=== PATIENT | female | born 1960 | race Caucasian/White ===

== ENCOUNTER → 2016-10-28 | Outpatient (CLI) | payer OTHER, MEDICAID ==
[2016-10-28 12:05] LABS: C-REACTIVE PROTEIN 12.5 mg/L (0-3.0); URIC ACID 2.6 mg/dL (2.6-6.0)
[2016-10-28 12:45] LABS: RHEUMATOID FACTOR NEGATIVE (NEGATIVE)
== END | disposition home or self-care (01) | DRG 554 ==
LOC: LAB 11:28
PROVIDERS: ATTEND Nurse Practitioner Family
DX: M06.4 Inflammatory polyarthropathy (principal); E87.6 Hypokalemia; M54.5 Low back pain; M25.571 Pain in right ankle and joints of right foot; M25.572 Pain in left ankle and joints of left foot; M79.671 Pain in right foot; M79.672 Pain in left foot
CPT/HCPCS: 36415; 84132; 84550; 85652; 86140; 86200; 86430